=== PATIENT | female | born 1985 | race Caucasian/White ===

== ENCOUNTER 2019-06-25 09:46 | Emergency (ER) | payer SELFPAY ==
[2019-06-25 10:48] LABS: Bilirubin Negative (Negative); Blood, Urine Negative (Negative); Clarity Clear (Clear); Glucose, Urine (Dipstick) Normal (Negative); Leukocyte Negative Leu/uL (Negative); Nitrite Negative (Negative); Protein, Urine (Dipstick) Negative (Neg-Trace); Urobilinogen Normal mg/dL (Less than 2)
== END 2019-06-25 11:24 ==
LOC: ERS 09:46
DX: B34.9 Viral infection, unspecified (principal)
CPT/HCPCS: 81003; 99283